=== PATIENT | male | born 1995 | race African-American/Black ===

== ENCOUNTER 2018-09-11 15:08 | Emergency (ER) | payer MEDICAID ==
[~2018-09-11] VITALS: Ht 170.2 cm; Wt 54.4 kg
[2018-09-11 15:30] VITALS: BP 108/76
--- NOTE | 2018-09-11 15:30 | NUR ---
ED Nurse Note: PATIENT WALKED INTO ED C/O GENERALIZED PAIN X 4DAYS. COMPLAINS OF RIGHT UPPER RIB PAIN, DENIES TRAUMA. WILL CONTINUE TO MONITOR
--- NOTE | 2018-09-11 16:44 | NUR ---
ED Nurse Note: pt medicated and tolerated well. xray on bedside
--- NOTE | 2018-09-11 17:19 | Diagnostic Imaging Report ---
Indication: Abdominal pain Technique: Supine view of the abdomen Comparison: none Findings: There is an anastomotic surgical staple line in the right lower quadrant. Bowel gas pattern is unremarkable. No masses or unusual calcifications. Impression: No acute process Evidence of prior bowel surgery
--- NOTE | 2018-09-11 17:20 | Diagnostic Imaging Report ---
Indication: Chest pain Technique: One view of the chest Comparison: none Findings: The heart size is upper limits of normal. The lungs and pleural spaces are clear. The bones are unremarkable Impression: No acute process
--- NOTE | 2018-09-11 17:45 | Emergency Room Report ---
History of Present Illness General Chief Complaint: Pain Source: Patient Present Illness HPI 23 YO male presents to the ED c/o painful coughing, increased mucus, and 7/10 in severity right posterior back pain and generalized abdominal pain x 4 days. Denies constipation, Diarrhea, nausea or vomiting. hx of Crohn's and GERD as well as intermittent bronchitis. Denies taking anti-acids, and reports being out of his inhaler. No fevers or chills, recent travel or ill contacts. Pt. denies strenuous activities. Denies dyspnea, denies anterior CP. Denies blood in the stool or black tarry stools. Denies trauma or fall. Allergies: Coded Allergies: No Known Allergies (Unverified , 09/11/18) Patient History Past Medical History: see triage record, other - crohns Past Surgical History: none Pertinent Family History: none Social History: Reports: smoking Reviewed Nursing Documentation: PMH: Agreed; PSxH: Agreed Nursing Documentation-PMH Past Medical History: No History, Except For Review of Systems All Other Systems: negative except mentioned in HPI Physical Exam Vital Signs Date Time Temp Pulse Resp B/P (MAP) Pulse Ox O2 Delivery O2 Flow Rate FiO2 09/11/18 15:18 98.8 74 18 108/76 (87) 98 Room Air Sp02 EP Interpretation: reviewed, normal General Appearance: no apparent distress, alert, GCS 15, non-toxic Head: normocephalic, atraumatic Eyes: bilateral eye normal inspection, bilateral eye PERRL ENT: hearing grossly normal, normal voice Neck: full range of motion Respiratory: chest non-tender, lungs clear, normal breath sounds, no rhonchi, no respiratory distress, no accessory muscle use, speaking full sentences, wheezing - mild bilateral expiratory wheezes Cardiovascular #1: regular rate, rhythm, no edema, normal capillary refill Gastrointestinal: normal bowel sounds, non tender, soft, no peritonitis, non- distended, no guarding, no hernia Rectal: deferred Genitourinary: normal inspection, no CVA tenderness Musculoskeletal: back normal, gait/station normal, normal range of motion, tender - TTp to the Right thoracic paraspinal musculature and right rhomboid. no obvious deformities, crepitus or bruises. Neurologic: alert, oriented x3, responsive, motor strength/tone normal, sensory intact, normal gait, speech normal, grossly normal Psychiatric: judgement/insight normal Skin: cyanosis, normal inspection Lymphatic: no adenopathy Medical Decision Making PA Attestation Dr. Fox Is my supervising Physician whom patient management has been discussed with. Diagnostic Impression: Primary Impression: Gastritis Qualified Codes: K29.70 - Gastritis, unspecified, without bleeding Additional Impressions: Acute bronchitis Qualified Codes: J20.9 - Acute bronchitis, unspecified Muscle strain ER Course 23 YO male presents to the ED c/o painful coughing, increased mucus, and 7/10 in severity right posterior back pain and generalized abdominal pain x 4 days. Denies constipation, Diarrhea, nausea or vomiting. hx of Crohn's and GERD as well as intermittent bronchitis. Denies taking anti-acids, and reports being out of his inhaler. No fevers or chills, recent travel or ill contacts. Pt. denies strenuous activities. Denies dyspnea, denies anterior CP. Denies blood in the stool or black tarry stools. Denies trauma or fall. Ddx considered but are not limited to GE, colitis, acute appy, SBO, H.pylori, Gastritis, PNA, pericarditis, PE/MT just to name a few. Vital signs: pt. is afebrile, H&PE are most consistent with Gastritis - no evidence to suggest acute abdomen on physical exam. Acute bronchitis-patient is in no acute distress, nontoxic in appearance normal O2 saturation and normal respiratory rate. ORDERS: -CXR: WNL -KUB: WNL ED INTERVENTIONS: -Pepcid PO -I do not identify an emergent condition at this time. With current presentation , pt. is stable for close outpatient follow up and conservative treatment. D/ w pt. to return promptly to ED with worsening or new symptoms.- Pt. verbalizes ' understanding and agreement with proposed treatment plan.proposed treatment plan. DISCHARGE: At this time pt. is stable for d/c to home. Will provide printed patient care instructions, and any necessary prescriptions. Care plan and follow up instructions have been discussed with the patient prior to discharge. Chest X-Ray Diagnostic Results Chest X-Ray Diagnostic Results : Chest X-Ray Ordered: Yes # of Views/Limited/Complete: 1 View Indication: Shortness of Breath EP Interpretation: Yes PA Xray: Interpretation reviewed, by supervising MD, and agrees with findings. Interpretation: no consolidation, no effusion, no pneumothorax, other - heart size is increased. Impression: Other - ABNORMAL, no acute disease, Electronically Signed by: Deepa Foster PA-C Other X-Ray Diagnostic Results Other X-Ray Diagnostic Results : X-Ray ordered: Abdominal KUB # of Views/Limited Vs Complete: 1 View Indication: Pain PA Xray: Interpretation reviewed, by supervising MD, and agrees with findings. Interpretation: nonspecific bowel gas, no sbo Impression: No acute disease Electronically Signed by: Deepa Foster PA-C Last Vital Signs Date Time Temp Pulse Resp B/P (MAP) Pulse Ox O2 Delivery O2 Flow Rate FiO2 09/11/18 15:30 98.8 74 18 108/76 98 Room Air Status: improved Disposition: HOME, SELF-CARE Condition: Stable Scripts Albuterol Sulfate* (ALBUTEROL SULFATE MDI*) 8.5 Gm Hfa.aer.ad 2 PUFF INH Q3H, #1 INH 0 Refills Prov: Deepa Foster 09/11/18 Lidocaine (Lidoderm) 1 Each Adh..patch 1 PATCH TOPIC DAILY, #30 PATCH 0 Refills Patch(es) may remain in place for up to 12 hours in any 24-hour period. Prov: Deepa Foster 09/11/18 Ranitidine Hcl* (ZANTAC*) 150 Mg Tablet 150 MG ORAL TWICE A DAY for 10 Days, #20 TAB Prov: Deepa Foster 09/11/18 Referrals: [facility]ERR[facility] (PCP) Patient Instructions: Gastritis, Adult, [id number], Medical Screening Exam Additional Instructions: Take medications as directed. Follow up with a Primary Care Provider in 3-5 days, even if your symptoms have resolved. Return sooner to ED if new symptoms occur, or current symptoms become worse. - Please note that this Emergency Department Report was dictated using [employer] java developer technology software, occasionally this can lead to erroneous entry secondary to interpretation by the dictation equipment. Deepa Foster Sep 11, 2018 17:45
[2018-09-11] MEDS ORDERED: ZANTAC150 MG ORAL (17:58)
[2018-09-11] MEDS ORDERED: LIDODERM700 M1 TOPIC (17:58)
[2018-09-11] MEDS ORDERED: ALBUTEROL SULF8.5 GM INH (17:58)
[2018-09-11 18:05] VITALS: BP 108/76
--- NOTE | 2018-09-11 18:05 | NUR ---
ER DISCHARGE NOTE: Patient is cleared to be discharged per ERMD, pt is aox4, on room air, with stable vital signs. pt was given dc and prescription instructions, pt was able to verbalize understanding, pt id band removed without complications. pt is able to ambulate with steady gait. pt took all belongings.
== END 2018-09-11 18:05 | disposition home or self-care (01) ==
LOC: EMR 16:05
DX: K29.70 Gastritis, unspecified, without bleeding (principal); J20.9 Acute bronchitis, unspecified; S29.012A Strain of muscle and tendon of back wall of thorax, initial encounter; X58.XXXA Exposure to other specified factors, initial encounter
CPT/HCPCS: 71045; 74018; 99283

== ENCOUNTER 2019-10-06 15:57 | Emergency (ER) | payer OTHER, MEDICAID ==
[~2019-10-06] VITALS: Ht 170.2 cm; Wt 59.0 kg
[~2019-10-06 15:57] MED LIST: ALBUTEROL SULF8.5 GM INH; LIDODERM700 M1 TOPIC; ZANTAC150 MG ORAL
[2019-10-06 16:01] VITALS: BP 121/74
[2019-10-06] MEDS ORDERED: Fluorescein Strips LEFT EYE ONE (16:15)
[2019-10-06] MEDS ORDERED: Tetracaine 0.5% Opth 4ml Soln RIGHT EYE ONE (16:15)
--- NOTE | 2019-10-06 16:21 | Emergency Room Report ---
History of Present Illness General Chief Complaint: Eye Problems Present Illness HPI 24 YO male with no significant past medical history presents to the emergency department complaining of itchy and scratching sensation to the lateral aspect of the right eye since this morning. Patient reports he was at the beach yesterday and believes he did get some sand in the affected eye. He reports initially having increased lacrimation however he states he now is experiencing a lot of dryness. He denies eye discharge. Patient denies significant changes in his vision. He denies floaters or loss of visual field. He denies contact lens use. He states he used Visine eyedrops with no relief. He denies history of allergies. He reports some mild photophobia. he reports 4/10 in severity discomfort. Allergies: Coded Allergies: No Known Allergies (Unverified , 09/11/18) COVID-19 Screening Contact w/high risk pt: No Experienced COVID-19 symptoms?: No COVID-19 Testing performed CLAIM APPROVER: No Patient History Past Medical History: see triage record Past Surgical History: none Pertinent Family History: none Reviewed Nursing Documentation: PMH: Agreed; PSxH: Agreed Review of Systems All Other Systems: negative except mentioned in HPI Physical Exam Vital Signs Date Time Temp Pulse Resp B/P (MAP) Pulse Ox O2 Delivery O2 Flow Rate FiO2 10/06/19 16:01 98.4 81 16 121/74 (90) 96 Room Air Eyes: right eye fluoroscene uptake; bilateral eye PERRL, bilateral eye EOMI, bilateral eye visual acuity - Left 20/25, right 20/30 , bilateral eye other - Increase fluorescein uptake in a linear fashion in the 8 o'clock position of the right eye, there is no involvement of the iris or pupil. Negative Darío sign. there is chemosis visualized. Medical Decision Making PA Attestation Dr. Coreas is my supervising Physician whom patient management has been discussed with. Diagnostic Impression: Primary Impression: Corneal abrasion, right Qualified Codes: S05.01XA - Injury of conjunctiva and corneal abrasion without foreign body, right eye, initial encounter Additional Impression: Chemosis of right conjunctiva ER Course 24 YO male with no significant past medical history presents to the emergency department complaining of itchy and scratching sensation to the lateral aspect of the right eye since this morning. Patient reports he was at the beach yesterday and believes he did get some sand in the affected eye. He reports initially having increased lacrimation however he states he now is experiencing a lot of dryness. He denies eye discharge. Patient denies significant changes in his vision. He denies floaters or loss of visual field. He denies contact lens use. He states he used Visine eyedrops with no relief. He denies history of allergies. He reports some mild photophobia. he reports 4/10 in severity discomfort. Ddx considered but are not limited to: corneal abrasion, acute glaucoma, globe rupture, FB, Corneal Ulcer, conjunctivitis. Iridis Vital signs: are WNL, pt. is afebrile H&PE are most consistent with: corneal abrasion ORDERS: -Tetracaine and Fluorescein Stain of the Right eye: -Increase fluorescein uptake in a linear fashion in the 8 o'clock position of the right eye, there is no involvement of the iris or pupil. Negative Darío sign. there is chemosis visualized. Pt. had positive relief of pain with tetracaine drops. there was negative evidence of Fb, deep ulcer, or rupture. ED INTERVENTIONS: none at this time. DISCHARGE: At this time pt. is stable for d/c to home. Will provide printed patient care instructions, and any necessary prescriptions. Care plan and follow up instructions have been discussed with the patient prior to discharge. . Last Vital Signs Date Time Temp Pulse Resp B/P (MAP) Pulse Ox O2 Delivery O2 Flow Rate FiO2 10/06/19 16:01 98.4 81 16 121/74 (90) 96 Room Air Disposition: HOME, SELF-CARE Condition: Stable Scripts Olopatadine Hcl (PATADAY) 2.5 Ml Drops 1 DROP OP DAILY for itching, #2.5 ML Prov: Deepa Foster 10/06/19 Ofloxacin (OCUFLOX) 5 Ml Drops 2 ML OP TID for 5 Days, #5 ML Prov: Deepa Foster 10/06/19 Referrals: [facility] Patient Instructions: Corneal Abrasion, [id number] Additional Instructions: Take medications as directed. Follow up with a Laundry Room Attendant in 3 days, even if your symptoms have resolved. --Please review list of primary care clinics, if you do not already have a primary care provider Return sooner to ED if new symptoms occur, or current symptoms become worse. - Please note that this Emergency Department Report was dictated using [employer] pe[employer] technology software, occasionally this can lead to erroneous entry secondary to interpretation by the dictation equipment. Deepa Foster Oct 06, 2019 16:21
[2019-10-06] MEDS ORDERED: OCUFLOX5 ML OP ×3 (16:40→16:53)
[2019-10-06] MEDS ORDERED: PATADAY2.5 ML OP ×3 (16:40→16:53)
[2019-10-06 16:54] VITALS: BP 135/76
== END 2019-10-06 16:54 | disposition home or self-care (01) ==
LOC: EMR 16:00
DX: S05.01XA Injury of conjunctiva and corneal abrasion without foreign body, right eye, initial encounter (principal); H11.421 Conjunctival edema, right eye; X58.XXXA Exposure to other specified factors, initial encounter; Y92.9 Unspecified place or not applicable
CPT/HCPCS: 99283

== ENCOUNTER 2019-12-03 14:01 | Emergency (ER) | payer OTHER, MEDICAID ==
[~2019-12-03] VITALS: Ht 172.7 cm; Wt 59.0 kg
[~2019-12-03 14:01] MED LIST changes: +OCUFLOX5 ML OP; +PATADAY2.5 ML OP
[2019-12-03 14:17] VITALS: BP 130/90
[2019-12-03] MEDS ORDERED: Ketorolac 30mg Inj IM ONE (14:45)
[2019-12-03] MEDS ORDERED: Lidocaine 1% Plain 30 ml INJ ONE (14:45)
--- NOTE | 2019-12-03 15:13 | Emergency Room Report ---
History of Present Illness General Chief Complaint: Skin Rash/Abscess Source: Patient Present Illness HPI 24-year-old male with no significant past medical history here complaining of 4 days of a painful mass in the anal area. Patient reports that it started after shaving the area. Denies any constipation, bleeding, pus drainage. Denies any fever and chills, diffuse abdominal pain, nausea vomiting. Reports that he has had an abscess in his armpit before. Denies any fever and chills. Is up-to-date with tetanus shot. Sitting comfortably with stable vital signs. Allergies: Coded Allergies: No Known Allergies (Unverified , 09/11/18) COVID-19 Screening Contact w/high risk pt: No Experienced COVID-19 symptoms?: No COVID-19 Testing performed ENTERER: No Patient History Past Medical History: see triage record Past Surgical History: none Pertinent Family History: none Immunizations: UTD Reviewed Nursing Documentation: PMH: Agreed; PSxH: Agreed Nursing Documentation-PMH Past Medical History: No History, Except For Hx Gastrointestinal Problems: Yes Review of Systems All Other Systems: negative except mentioned in HPI Physical Exam Vital Signs Date Time Temp Pulse Resp B/P (MAP) Pulse Ox O2 Delivery O2 Flow Rate FiO2 12/03/19 14:14 98.1 90 15 130/90 (103) 99 Room Air Sp02 EP Interpretation: reviewed, normal General Appearance: no apparent distress, alert, GCS 15, non-toxic Head: normocephalic, atraumatic Eyes: bilateral eye normal inspection, bilateral eye PERRL ENT: hearing grossly normal, normal pharynx, no angioedema, normal voice Neck: full range of motion, supple/symm/no masses Respiratory: chest non-tender, lungs clear, normal breath sounds, speaking full sentences Cardiovascular #1: regular rate, rhythm, no edema Gastrointestinal: normal bowel sounds, non tender, soft, non-distended, no guarding, no rebound Rectal: other - Small mass noted left perianal Genitourinary: no CVA tenderness Musculoskeletal: back normal Neurologic: alert, motor strength/tone normal, oriented x3, sensory intact, responsive, speech normal Psychiatric: judgement/insight normal, memory normal, mood/affect normal, no suicidal/homicidal ideation Skin: other - ijeoma cyst perianal Lymphatic: no adenopathy Procedures Incision and Drainage Incision and Drainage : Consent: Verbal Site: perianal Blade Size: 11 I & D Procedure: betadine prep Wound Location: pelvis - perianal Wound Length (cm): 1 Wound Explored: clean Anesthesia: 1% Lidocaine Volume Anesthetic (ccs): 10 Sling Applied?: No Patient Tolerated: Well Complications: None Progress Due to the depth of the cyst I had to use needle to aspirate the fluid and made a very small cut however no obvious pus came out and I was able to drain the aspiration very minimal amount of pus blood-tinged. Medical Decision Making PA Attestation All my diagnosis and treatment plans were reviewed ad discussed with my supervising physician Dr. Fox Diagnostic Impression: Primary Impression: Pilonidal cyst ER Course 24-year-old male with no significant past medical history here complaining of 4 days of a painful mass in the anal area. Patient reports that it started after shaving the area. Denies any constipation, bleeding, pus drainage. Denies any fever and chills, diffuse abdominal pain, nausea vomiting. Reports that he has had an abscess in his armpit before. Denies any fever and chills. Is up-to-date with tetanus shot. Sitting comfortably with stable vital signs. Ddx considered but are not limited to : Cellulitis, fistula,pilonidal cyst, superficial infection, abscess Vital signs: are WNL, pt. is afebrile H&PE are most consistent with: Possible pilonidal cyst ORDERS: Keflex, Bactrim, ibuprofen 800, Tylenol 3 ED INTERVENTIONS: Toradol IM, incision and drainage DISCHARGE: At this time pt. is stable for d/c to home. Will provide printed patient care instructions, and any necessary prescriptions. Care plan and follow up instructions have been discussed with the patient prior to discharge. Advised patient to have wound check in 2 to 4 days, take medication as directed, follow primary doctor for referral to general surgeon if needed as there might be a possibility of fistula. If worsening symptoms return to the emergency room I Had Estela assist me during the process Patient was evaluated in the context of the global COVID-19 pandemic, which necessitated consideration that the patient might be at risk for infection with the SARS-COV-2 virus that causes COVID-19. Institutional protocols and algorithms that pertain to the evaluation of patients at risk for COVID-19 are in a state of rapid change based on information relieved by multiple regulatory bodies including the CDC and the federal and state organizations. These policies and algorithms were followed during the patient's care in the ED. Last Vital Signs Date Time Temp Pulse Resp B/P (MAP) Pulse Ox O2 Delivery O2 Flow Rate FiO2 12/03/19 14:17 98.1 90 15 130/90 99 Room Air Disposition: HOME, SELF-CARE Condition: Stable Scripts Acetaminophen With Codeine (T#3) (TYLENOL #3 TAB*) Y Tab 1 TAB ORAL Q12HR PRN for For Pain for 3 Days, #6 TAB Prov: Hailey Cano 12/03/19 Ibuprofen (Ibu) 800 Mg Tablet 800 MG PO TID, #30 TAB Prov: Hailey Cano 12/03/19 Cephalexin* (KEFLEX*) 500 Mg Capsule 500 MG ORAL EVERY 6 HOURS for 7 Days, #28 CAP Prov: Hailey Cano 12/03/19 Trimethoprim/Sulfamethoxazole 160/800* (BACTRIM DS TABLET*) 1 Each Tablet 1 TAB ORAL TWICE A DAY for 7 Days, #14 TAB Prov: Hailey Cano 12/03/19 Patient Instructions: Incision and Drainage of a Pilonidal Cyst, Care After Additional Instructions: Take medication as directed, follow-up with your primary care provider, wound dressing needs to be changed every few hours, if worsening symptoms return to the emergency room. He may need to be seen by a your primary doctor to the general surgeon if this cyst is deeper and has formed fistulous. Hailey Cano Dec 03, 2019 15:13
[2019-12-03] MEDS ORDERED: CEPHALEXIN500 MG ORAL (15:15)
[2019-12-03] MEDS ORDERED: BACTRIM DS TAB1 EAC1 ORAL (15:15)
[2019-12-03] MEDS ORDERED: ACETAMINOPHEN-1 EAC1 ORAL (15:15)
[2019-12-03] MEDS ORDERED: IBU800 MG PO (15:15)
== END 2019-12-03 15:22 | disposition home or self-care (01) ==
LOC: EMR 14:54
DX: L05.01 Pilonidal cyst with abscess (principal)
CPT/HCPCS: 10080; 96372; 99283; J1885; J2001